=== PATIENT | female | born 1995 | race Caucasian/White ===

== ENCOUNTER 2017-07-11 01:21 | Emergency (ER) | payer OTHER ==
[2017-07-11 01:33] VITALS: BP 111/73; TEMP 98
--- NOTE | 2017-07-11 01:54 | C.PDOC ---
History Of Present Illness 22 y/o female c/o intermittent periumbilical pain since February of this year. Patient was seen several times in the ER for the same complaint, and was just seen at [facility] 07/06 for the same; blood work, US, and XRAY done and was diagnosed with constipation. Patient also had a CT done 04/21 for the same pain and the CT showed she had a right ovarian cyst with some free fluid in pelvis. Patient was advised to follow up with an ALUM OPERATOR and now has a scheduled appointment in August. Patient reports having the same pain earlier today which prompted her visit today. Patient notes 2 episodes of vomiting earlier today. She currently has no pain, and denies diarrhea, fever, chills, dysuria, hematuria, vaginal bleeding/discharge. Time Seen by Provider: 07/11/17 01:32 Chief Complaint (Nursing): Abdominal Pain History Per: Patient History/Exam Limitations: no limitations Onset/Duration Of Symptoms: Days (Since february), Intermittent Episodes Current Symptoms Are (Timing): Gone Severity: Mild Location Of Pain/Discomfort: Periumbilical Quality Of Discomfort: "Pain" Associated Symptoms: Vomiting. denies: Fever, Chills, Diarrhea Exacerbating Factors: None Alleviating Factors: None Recent travel outside of the [place]: No Additional History Per: Patient Abnormal Vaginal Bleeding: No Past Medical History Reviewed: Historical Data, Nursing Documentation, Vital Signs Vital Signs: Last Vital Signs Temp 98 F 07/11/17 01:30 Pulse 79 07/11/17 01:56 Resp 17 07/11/17 01:56 BP 111/73 07/11/17 01:30 Pulse Ox 98 07/11/17 02:57 - Medical History PMH: Asthma Surgical History: No Surg Hx - [facility] Procedures FAMILY THERAPY (09/04/14) INDIVID PSYCHOTHERAP NEC (09/04/14) OTHER GROUP THERAPY (09/04/14) Family History: States: No Known Family Hx - Social History Hx Tobacco Use: No Hx Alcohol Use: Yes Hx Substance Use: No - Immunization History Hx Tetanus Toxoid Vaccination: No Hx Influenza Vaccination: No Hx Pneumococcal Vaccination: No Review Of Systems Except As Marked, All Systems Reviewed And Found Negative. Constitutional: Negative for: Fever, Chills Cardiovascular: Negative for: Chest Pain Respiratory: Negative for: Shortness of Breath Gastrointestinal: Positive for: Nausea, Vomiting, Abdominal Pain. Negative for : Diarrhea Genitourinary: Negative for: Dysuria, Hematuria, Vaginal Discharge, Vaginal Bleeding Physical Exam - Physical Exam Appears: Well, Non-toxic, No Acute Distress Skin: Warm, Dry Oral Mucosa: Moist Cardiovascular: Rhythm Regular Respiratory: Normal Breath Sounds, No Rales, No Rhonchi, No Wheezing Gastrointestinal/Abdominal: Normal Exam, Bowel Sounds, Soft, No Tenderness Back: Normal Inspection, No CVA Tenderness Neurological/Psych: Oriented x3 ED Course And Treatment O2 Sat by Pulse Oximetry: 98 (RA) Pulse Ox Interpretation: Normal Progress Note: Patient does not want any blood work, urine, etc done - states she was just wants pain medication Rx. Patient is well appearing, with normal physical exam and currently asymptomatic. Rx given for toradol and she was instructed to follow up with her ALUM OPERATOR appointment as scheduled. She understands she should return to ED if symptoms worsen. Disposition Counseled Patient/Family Regarding: Diagnosis, Need For Followup, Rx Given - Disposition Referrals: Marilee Gonzalez MD [Primary Care Provider] - Disposition: HOME/ ROUTINE Disposition Time: 01:55 Condition: STABLE Additional Instructions: FOLLOW UP WITH ALUM OPERATOR SCHEDULED USE PAIN MEDICATION NEEDED RETURN TO ER IF SYMPTOMS WORSEN Prescriptions: Ketorolac Tromethamine [Toradol] 10 mg PO BID PRN #20 tab PRN Reason: pain Instructions: Abdominal Pain (ED) Forms: [facility] (Colombian) Print Language: TOGOLESE - POA Present On Arrival: None - Clinical Impression Clinical Impression: Chronic abdominal pain - Scribe Statement The provider has reviewed the documentation as recorded by the Stephieibangelina wall All medical record entries made by the Stephieibangelina were at my direction and personally dictated by me. I have reviewed the chart and agree that the record accurately reflects my personal performance of the history, physical exam, medical decision making, and the department course for this patient. I have also personally directed, reviewed, and agree with the discharge instructions and disposition.
[2017-07-11 01:57] VITALS: PULSE 79; RESP 17
[2017-07-11 02:44] VITALS: O2SAT 98
== END 2017-07-11 01:57 | disposition home or self-care (01) ==
LOC: SUPCPDRO 01:21 → C.ER 01:21
DX: G89.29 Other chronic pain (principal); R10.33 Periumbilical pain

== ENCOUNTER 2017-11-07 23:39 | Emergency (ER) | payer OTHER ==
[2017-11-08 00:10] VITALS: BP 114/73; PULSE 89; RESP 20; TEMP 99.6; O2SAT 98
--- NOTE | 2017-11-08 00:35 | C.PDOC ---
History Of Present Illness 22 year old female presents to the ED with mother for evaluation of elevated blood glucose noted earlier today. As per mother, patient has been dizzy and thirsty all day. Patient admits that she was out drinking last night and her symptoms have been steadily improving throughout the day. Patient does not have history of Diabetes, but her accu check at home was around 231mg/dL at around 2100. Patient then ate dinner at 2200. Upon ED arrival, patient's finger stick was 119. Patient has no complaints at this time and denies fever, chills, nausea , vomiting, increased urinary frequency. Time Seen by Provider: 11/08/17 00:24 Chief Complaint (Nursing): High Blood Sugar History Per: Patient, Family History/Exam Limitations: no limitations Onset/Duration Of Symptoms: Hrs Current Symptoms Are (Timing): Still Present Current Diabetic Medications: None Associated Infectious Symptoms: denies: Urinary Frequency, Nausea, Vomiting Treatment Prior To Provider Evaluation: Accucheck Additional History Per: Patient Past Medical History Reviewed: Historical Data, Nursing Documentation, Vital Signs Vital Signs: Last Vital Signs Temp 99.6 F 11/08/17 00:05 Pulse 89 11/08/17 00:05 Resp 20 11/08/17 00:05 BP 114/73 11/08/17 00:05 Pulse Ox 98 11/08/17 00:49 - Medical History PMH: Asthma Denies: Chronic Kidney Disease Surgical History: No Surg Hx - [facility] Procedures FAMILY THERAPY (09/04/14) INDIVID PSYCHOTHERAP NEC (09/04/14) OTHER GROUP THERAPY (09/04/14) Family History: States: Unknown Family Hx - Social History Hx Tobacco Use: No Hx Alcohol Use: Yes Hx Substance Use: No - Immunization History Hx Tetanus Toxoid Vaccination: No Hx Influenza Vaccination: No Hx Pneumococcal Vaccination: No Review Of Systems Constitutional: Positive for: Other (elevated blood sugar, increased thirst). Negative for: Fever, Chills Gastrointestinal: Negative for: Nausea, Vomiting Genitourinary: Negative for: Frequency Neurological: Positive for: Dizziness Physical Exam - Physical Exam Appears: Non-toxic, No Acute Distress Skin: Normal Color, Warm, Dry Head: Atraumatic, Normacephalic Eye(s): bilateral: Normal Inspection Ear(s): Bilateral: Normal Nose: Normal, No Discharge Oral Mucosa: Moist Throat: Normal, No Erythema, No Exudate Neck: Supple Chest: Symmetrical, No Deformity, No Tenderness Cardiovascular: Rhythm Regular, No Murmur Respiratory: Normal Breath Sounds, No Rales, No Rhonchi, No Wheezing Extremity: Normal ROM, Capillary Refill (less than 2 seconds ) Neurological/Psych: Oriented x3, Normal Speech, Normal Cognition Gait: Steady ED Course And Treatment O2 Sat by Pulse Oximetry: 98 (on RA) Pulse Ox Interpretation: Normal Progress Note: glu 119 NOT DM range Medical Decision Making Medical Decision Making: pt drank alcohol and suffering hangover all day today asking to "drink lots of water" mom checked FS @ home 231 THEN fed pt dinner and in ER FS 119, argues AGAINST new onset DM and more for mild alcohol hangover. Defer w/u w informed consent. unlikely this young woman has DM, had elevated glu 231 @ home, ate dinner, then BS to normal. more likely erroneously read the FS machine or contaminated from parents who are both diabetic. increased thirst likely related to New Year's Elisa hangover. pt not clinically dehydrated, obviously eating and drinking well and declines w/u now w informed consent. Disposition Doctor Will See Patient In The: Office Counseled Patient/Family Regarding: Studies Performed, Diagnosis - Disposition Referrals: Marilee Mijares MD [Staff Provider] - Disposition: HOME/ ROUTINE Disposition Time: 00:35 Condition: GOOD Additional Instructions: follow-up with Dr. Mijares as needed pt is NOT diabetic by ED eval. Forms: General Discharge Instructions, [facility] (Cymro) - Clinical Impression Clinical Impression: Thirst - Scribe Statement The provider has reviewed the documentation as recorded by the Scribe (Lynette Murray) Provider Attestation: All medical record entries made by the Scribe were at my direction and personally dictated by me. I have reviewed the chart and agree that the record accurately reflects my personal performance of the history, physical exam, medical decision making, and the department course for this patient. I have also personally directed, reviewed, and agree with the discharge instructions and disposition.
== END 2017-11-08 00:39 | disposition home or self-care (01) ==
LOC: C.ER 23:39
DX: R63.1 Polydipsia (principal)

== ENCOUNTER 2017-12-21 08:53 | Day surgery (SDC) | payer OTHER ==
[2017-12-21] MEDS ORDERED: Propofol 10 mg/ml Inj (20 ML) ONE ×2 (09:20→09:47)
[2017-12-21] MEDS ORDERED: Midazolam 2 MG/2 ML VIAL ONE (09:20)
[2017-12-21] MEDS ORDERED: Bupivacaine HCl 0.5% PF (10 ml) Inj ONE ×2 (09:54)
[2017-12-21] MEDS ORDERED: Lidocaine 1% Inj (20ml) ONE (09:55)
[2017-12-21] MEDS ORDERED: Oxycodone/Acetaminophen 5/325 mg Tab PO PRN (10:29)
[2017-12-21] MEDS ORDERED: HYDROmorphone 0.5 mg/0.5 ml ISec IVP PRN (10:30)
--- NOTE | 2017-12-21 10:33 | PCM.SURG1 ---
Surgeon's Initial Post Op Note - Surgeon's Notes Surgeon: SUHA WillamsM Umbrella Tipper Machine: Julio Tamayo PGY2 Type of Anesthesia: General IV, Local (15mL 1:1 mixture of 1% lidocaine plaine to 0.5% marciane plain) Anesthesia Administered By: Dr. Lars Md Pre-Operative Diagnosis: Right foot verruca plantaris Operative Findings: see dictation Post-Operative Diagnosis: Right foot verruca plantaris Operation Performed: Right foot exciision and cauterization of verruca plantaris Specimen/Specimens Removed: none Estimated Blood Loss: EBL {In ML}: 0 Blood Products Given: N/A Drains Used: No Drains Post-Op Condition: Good Date of Surgery/Procedure: 12/21/17 Time of Surgery/Procedure: 10:33
[2017-12-21 13:54] VITALS: BP 96/53; PULSE 81; RESP 15; TEMP 97.4; O2SAT 99
--- NOTE | 2017-12-22 10:57 | OP ---
PROCEDURE DATE: 12/21/2017 PRIMARY SURGEON: Mason Beavers DPM GEOLOGICAL SCIENCE TEACHER: Dr. Maren Tamayo DPM ANESTHESIOLOGIST: Dr. Sousa. ANESTHESIA TYPE: MAC IV sedation with local. PREOPERATIVE DIAGNOSIS: Right foot verruca plantaris/plantar wart. POSTOPERATIVE DIAGNOSIS: Right foot verruca plantaris/plantar wart. PROCEDURES PERFORMED: Right foot plantar wart excision and electrocauterization with debridement. INDICATIONS: The patient is a 22-year-old female with the above stated diagnosis. The patient has exhausted conservative treatment options provided by Dr. Beavers and is now need of surgical intervention. The patient signed the surgical consent after careful explanation of risks, benefits, complications, and potential alternatives for proposed surgical procedure. No guarantees were either given nor implied. All the patient's questions were answered to her satisfaction. PREPARATION: The patient's n.p.o. status was confirmed prior to bringing the patient to the operating room. The patient was brought into the operating room and placed on the operating room table in a supine position. Once IV sedation was confirmed to have been achieved, the patient received a total of 15 mL of a 1:1 mixture of 0.5% Marcaine plain to 1% lidocaine plain to in a local block type fashion along the second ray and second interspace. Once local anesthetic was confirmed to have been achieved, the patient's right foot was then prepped and draped in the usual sterile manner and the procedure began. PROCEDURE: Right foot plantar wart excision with electrocauterization and debridement. DESCRIPTION OF PROCEDURE: Attention was then directed to the plantar aspect of the patient's right foot where an approximately 4 x 1 cm area of distribution of skin lesion was noted to the plantar lateral aspect of the second digit with extension into the plantar second interspace. Once the area of hyperkeratotic lesions was evaluated, using a combination of #10 and #15 blades, hyperkeratotic epidermal tissue was shaved down to the layer of the epidermal-dermal tissue junction where six distinct points of pinpoint bleeding were appreciated. The six points were noted to be areas of verruca plantaris infiltration to dermal-epidermal tissue layer. At this time, pinpoint electrocauterization using needle-point bovie was introduced. Electrocautery was set at 35/35 and electrocauterization energy was delivered to the six distinct points of verruca plantaris infiltration. Upon completion of delivery of electrocauterization energy, burned necrotic tissue was curetted out. Electrocauterization pinpoint bleeding was lowered to 20/20 and hemostasis was achieved at the areas of the necrotic skin excision. Surgical site was then cleansed with hydrogen peroxide, sterile saline solution. No excess bleeding was noted at this time. Procedure site was then dressed with Xeroform, 4 x 4 gauze, Bertha and HERNAN. POSTOPERATIVE CONDITION: The patient tolerated the anesthesia and procedure well and was escorted to the recovery room with vital signs stable and neurovascular status intact to the right foot. The patient had no complaints or complications. The patient will follow up with Dr. Beavers in his office on outpatient basis. Maren Tamayo DPM Mason Beavers DPM HEMANTH
== END 2017-12-21 12:40 | disposition home or self-care (01) ==
LOC: C.SDS 08:53
PROVIDERS: ATTEND Podiatrist Foot Surgery
DX: B07.0 Plantar wart (principal)
CPT/HCPCS: 11305; 17110; J1885; J2250; J2405; J2704; J3010

== ENCOUNTER 2018-05-29 03:11 | Emergency (ER) | payer MEDICAID, OTHER ==
[2018-05-29 03:24] VITALS: BP 127/60; PULSE 90; RESP 18; TEMP 99.2; O2SAT 97
[2018-05-29] MEDS ORDERED: Sodium Chloride 0.9% 1,000 ML IV ONE (03:40)
--- NOTE | 2018-05-29 03:50 | C.PDOC ---
History Of Present Illness 23-year-old female presents to the ED complaining of a left-sided headache since 1PM this afternoon. She reports associated nausea, vomiting, and dizziness. Patient has history of migraines and notes current symptoms are similar to prior episodes. She has been prescribed a medication for the migraines (unknown name) but states she vomited today and has not been tolerating anything PO. She denies any fever, chills, neck stiffness, worst headache of life, photophobia, or visual changes. Time Seen by Provider: 05/29/18 03:26 Chief Complaint (Nursing): Headache History Per: Patient History/Exam Limitations: no limitations Onset/Duration Of Symptoms: Hrs Current Symptoms Are (Timing): Still Present Associated Symptoms: Nausea, Vomiting Past Medical History Reviewed: Historical Data, Nursing Documentation, Vital Signs Vital Signs: Last Vital Signs Temp 99.2 F 05/29/18 03:21 Pulse 90 05/29/18 03:21 Resp 18 05/29/18 03:21 BP 127/60 05/29/18 03:21 Pulse Ox 97 05/29/18 04:55 - Medical History PMH: Asthma, Bipolar Disorder, Migraine Surgical History: No Surg Hx - [facility] Procedures FAMILY THERAPY (09/04/14) INDIVID PSYCHOTHERAP NEC (09/04/14) OTHER GROUP THERAPY (09/04/14) Family History: States: Unknown Family Hx - Social History Hx Tobacco Use: No Hx Alcohol Use: Yes Hx Substance Use: No - Immunization History Hx Tetanus Toxoid Vaccination: No Hx Influenza Vaccination: No Hx Pneumococcal Vaccination: No Review Of Systems Except As Marked, All Systems Reviewed And Found Negative. Constitutional: Negative for: Fever, Chills Eyes: Negative for: Vision Change Gastrointestinal: Positive for: Nausea, Vomiting Musculoskeletal: Negative for: Neck Pain Neurological: Positive for: Headache, Dizziness Physical Exam - Physical Exam Appears: Non-toxic, No Acute Distress Skin: Warm, Dry, No Diaphoretic, No Pale, No Rash Head: Atraumatic, Normacephalic, No Tenderness, No Swelling Eye(s): bilateral: Normal Inspection, PERRL, EOMI, Other (no nystagmus) Oral Mucosa: Moist Neck: Normal ROM, Supple, Other (No rigidity) Chest: Symmetrical Cardiovascular: Rhythm Regular, No Murmur Respiratory: Normal Breath Sounds, No Rales, No Rhonchi, No Wheezing Gastrointestinal/Abdominal: Soft, No Tenderness, No Distention Extremity: Bilateral: Atraumatic, Normal Color And Temperature, Normal ROM Neurological/Psych: Oriented x3, Normal Speech, Normal Cranial Nerves Gait: Steady ED Course And Treatment - Laboratory Results Urine POC: Negative O2 Sat by Pulse Oximetry: 97 (RA) Pulse Ox Interpretation: Normal Medical Decision Making Medical Decision Making: Impression: 23-year-old with migraine Plan: --Urine POC --Reglan 10 mg IVP --1 L IV fluids --Toradol 30 mg IVP 0400 RN Kristin informs me the patient has eloped the ED, she has not been in room for over 20 minutes. Patient appeared well and presented for migraine headache. No neuro deficits or concerning signs on exam. Disposition - Disposition Referrals: Marilee Gonzalez MD [Primary Care Provider] - Disposition: ELOPEMENT - ER ONLY Disposition Time: 04:10 Condition: UNKNOWN - POA Present On Arrival: None - Clinical Impression Clinical Impression: Migraine - PA / COLLABORATING SUPERVISING PHYSICIAN / Resident Statement MD/DO has reviewed & agrees with the documentation as recorded. - Scribe Statement The provider has reviewed the documentation as recorded by the Scribe (Megan Hitchcock) All medical record entries made by the Scribe were at my direction and personally dictated by me. I have reviewed the chart and agree that the record accurately reflects my personal performance of the history, physical exam, medical decision making, and the department course for this patient. I have also personally directed, reviewed, and agree with the discharge instructions and disposition.
== END 2018-05-29 03:27 | disposition left against medical advice (07) ==
LOC: SUPCPDRO 03:11 → C.ER 03:11
DX: G43.909 Migraine, unspecified, not intractable, without status migrainosus (principal)